=== PATIENT | male | born 2000 | race Caucasian/White ===

== ENCOUNTER 2021-05-27 18:07 | Emergency (ER) | payer SELFPAY ==
[~2021-05-27] VITALS: Ht 182.9 cm; Wt 104.5 kg
[2021-05-27 18:08] VITALS: TEMP 98.3
[2021-05-27] MEDS ORDERED: NORCO 325 MG-51 TAB PO (20:00)
[2021-05-27 20:15] VITALS: BP 137/81; PULSE 77
[2021-05-28] MEDS ORDERED: AMOXICILLIN 8751 TAB PO (16:46)
== END 2021-05-27 20:38 | disposition home or self-care (01) ==
LOC: COL.ER 18:07
DX: S91.211A Laceration without foreign body of right great toe with damage to nail, initial encounter (principal); Z23 Encounter for immunization; W20.8XXA Other cause of strike by thrown, projected or falling object, initial encounter
CPT/HCPCS: J0690